=== PATIENT | male | born 1935 | race Caucasian/White ===

== ENCOUNTER 2024-05-01 13:43 | Outpatient (AMB) | payer MEDICARE, SELFPAY ==
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
[2024-05-01 14:04] VITALS: BP 164/75; PULSE 86; O2SAT 97; BMI 29.1
== END 2024-05-01 14:39 | disposition home or self-care (01) ==
PROVIDERS: PCP Family Medicine; Visit Provider Nurse Practitioner Family
DX: M47.817 Spondylosis without myelopathy or radiculopathy, lumbosacral region (principal); M54.50 Low back pain, unspecified; M51.36 Other intervertebral disc degeneration, lumbar region
CPT/HCPCS: 99204

== ENCOUNTER → 2024-05-01 13:43 | Outpatient (BNVA) | payer MEDICARE, SELFPAY | PROVIDERS: PCP Family Medicine; Visit Provider Nurse Practitioner Family | DX: M47.817 Spondylosis without myelopathy or radiculopathy, lumbosacral region (principal); M54.50 Low back pain, unspecified; M51.36 Other intervertebral disc degeneration, lumbar region | CPT/HCPCS: 99202 ==

== ENCOUNTER 2024-06-12 06:16 | Outpatient (REF) | payer MEDICARE, SELFPAY ==
--- NOTE | ~2024-06-12 | FL_ITS ---
EXAMINATION: XR FLUOROSCOPY WITH IMAGES CLINICAL INFORMATION: Intraoperative bilateral L4 and L5 nerve root sleeve injections. COMPARISON: None available. TECHNIQUE: Fluoroscopy provided to: Fluoroscopy time: 0.6 min DAP: 0.153 mGycm2 Images: 12 FINDINGS: Images submitted demonstrate needle placement and contrast injection into the bilateral lumbar L5 and L4 nerve root sleeves. FL/FL guidance in treatment room IMPRESSION: Fluoroscopic guidance. Please refer to the full operative report for details. Electronically signed by: Antonio Pickett MD 08/14/2024 09:15 AM EDT
== END 2024-06-12 06:17 | disposition home or self-care (01) ==
LOC: CF 06:16
PROVIDERS: Visit Provider Anesthesiology
DX: M47.817 Spondylosis without myelopathy or radiculopathy, lumbosacral region (principal); M47.816 Spondylosis without myelopathy or radiculopathy, lumbar region
CPT/HCPCS: 64493; 64494; J2795; Q9967

== ENCOUNTER 2024-06-12 07:11 | Outpatient (AMB) | payer MEDICARE, SELFPAY ==
--- NOTE | 2024-06-12 07:12 | MHC.OFFVIS ---
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 Accompanied by: Self / Same As Patient Allergies acetaminophen Allergy (Unknown, Verified 06/12/24 07:22) Unknown clozapine [From Versacloz] Allergy (Unknown, Verified 06/12/24 07:22) Unknown fentanyl Allergy (Unknown, Verified 06/12/24 07:22) Unknown hydrochlorothiazide Allergy (Unknown, Verified 06/12/24 07:22) Unknown labetalol Allergy (Unknown, Verified 06/12/24 07:22) Unknown levofloxacin [From Levaquin] Allergy (Unknown, Verified 06/12/24 07:22) Unknown lisinopril Allergy (Unknown, Verified 06/12/24 07:22) Unknown valsartan [From Diovan] Allergy (Unknown, Verified 06/12/24 07:22) Unknown PFSH Medical History (Updated 06/12/24 @ 08:04 by Chang Marley MD) Erectile dysfunction Glaucoma Spinal stenosis Hypertension Diabetes mellitus with diabetic neuropathy Chronic back pain Chronic anticoagulation CAD (coronary artery disease) Anemia Surgical History (Updated 05/01/24 @ 14:39 by Peyton Hawley) Hx of transurethral resection of prostate H/O adenoidectomy History of tonsillectomy Social History Alcohol intake: current Alcohol intake frequency: a few times a week Alcohol type: beer Patient Tobacco Use Status: Former Tobacco user Tobacco use type: Cigarette Physical Exam Vital Signs: Last Vital Signs Pulse 82 06/12/24 08:07 Resp 16 06/12/24 08:07 BP 186/71 H 06/12/24 08:07 Pulse Ox 97 06/12/24 08:07 Oxygen Delivery Method Room Air 06/12/24 08:07 BMI result Body Mass Index 29.1 Assessment & Plan Assessment & Plan (1) Spondylosis of lumbar region without myelopathy or radiculopathy: Code(s): M47.816 - Spondylosis without myelopathy or radiculopathy, lumbar region Category: Medical Plan Diagnostic medial branch block L3,L4 dorsal ramus L5 bilateral.? ? ?Informed consent was explained to the patient. All questions were explained and? answered.? The patient was taken inside the operating room where she was positioned prone on the operating table. Time-out was performed delineating correct site, side, the nature of the procedure, patient's allergy, . All operating room staff was participating in OR time-out procedure. ? ? The lower back was prepped with ChloraPrep and draped with sterile towels.? C-arm was brought over the operating field and sq picture of L4-, L5 vertebra and S1 AREA were delineated on the screen.? Point of interest were delineated as confluence of superior articular process of L4 and L5 vertebra bilaterally with corresponding transverse processes as well as confluence of the sacral alae bilaterally with superior articular process of S1.? The projection of the point of interest to the skin were injected with the small amount of local anesthetic lidocaine 2% 1-1.5 cc.? After that 22 gauge 3.5 inch spinal needle was driven sequentially to the points of interest in tunnel vision fashion. After needles gently contacted the bone at the point of interests the needle was injected with small amount of the contrast.? The injection of the contrast did not demonstrate any intravascular or intrathecal spread of the contrast.? After that injection of the? ropivacaine 0.5%-1cc was performed at each needle location.??after that the needles were removed and Bandaids were applied. ? Upon completion of the injections? needle was? removed and sterile Band-Aids were applied.? The patient tolerated procedure very well. Orders: Orders FL guidance in treatment room Today M47.817 - Spondylosis without myelopathy or radiculopathy, lumbosacral region Coding Level of Care Code Procedure Only Diagnoses Spondylosis of lumbar region without myelopathy or radiculopathy M47.816
[2024-06-12 07:20] VITALS: BP 187/87; PULSE 80; RESP 16; O2SAT 98; BMI 29.1
[2024-06-12 08:07] VITALS: BP 186/71; PULSE 82; RESP 16; O2SAT 97
== END 2024-06-12 08:07 | disposition home or self-care (01) ==
LOC: HO.PMCPRC 07:11
PROVIDERS: PCP Family Medicine; Visit Provider Anesthesiology
DX: M47.816 Spondylosis without myelopathy or radiculopathy, lumbar region (principal)

== ENCOUNTER 2024-06-21 15:40 | Outpatient (AMB) | payer MEDICARE, SELFPAY ==
[2024-06-21 15:50] VITALS: BP 169/71; PULSE 84; O2SAT 97; BMI 29.1
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
== END 2024-06-21 16:12 | disposition home or self-care (01) ==
PROVIDERS: PCP Family Medicine; Visit Provider Registered Nurse Emergency
DX: M47.817 Spondylosis without myelopathy or radiculopathy, lumbosacral region (principal); M54.50 Low back pain, unspecified; M51.36 Other intervertebral disc degeneration, lumbar region; M47.816 Spondylosis without myelopathy or radiculopathy, lumbar region
CPT/HCPCS: 99213

== ENCOUNTER → 2024-06-21 15:40 | Outpatient (BNVA) | payer MEDICARE, SELFPAY | PROVIDERS: PCP Family Medicine; Visit Provider Registered Nurse Emergency | DX: M47.816 Spondylosis without myelopathy or radiculopathy, lumbar region (principal); M47.817 Spondylosis without myelopathy or radiculopathy, lumbosacral region; M54.50 Low back pain, unspecified; M51.36 Other intervertebral disc degeneration, lumbar region | CPT/HCPCS: 99212 ==

== ENCOUNTER 2024-08-01 15:43 | Outpatient (AMB) | payer MEDICARE, SELFPAY ==
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
== END 2024-08-01 15:44 | disposition home or self-care (01) ==
LOC: HO.PMC 15:44
PROVIDERS: PCP Family Medicine; Visit Provider Registered Nurse Emergency
DX: M47.817 Spondylosis without myelopathy or radiculopathy, lumbosacral region (principal); M54.50 Low back pain, unspecified; M51.36 Other intervertebral disc degeneration, lumbar region; M47.816 Spondylosis without myelopathy or radiculopathy, lumbar region
CPT/HCPCS: 99442

== ENCOUNTER → 2024-08-01 15:43 | Outpatient (BNVA) | payer MEDICARE, SELFPAY | PROVIDERS: PCP Family Medicine; Visit Provider Registered Nurse Emergency ==

== ENCOUNTER 2024-08-27 15:04 | Outpatient (AMB) | payer MEDICARE, SELFPAY ==
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
[2024-08-27 15:17] VITALS: BP 160/70; PULSE 62; RESP 14; O2SAT 98; BMI 28.7
== END 2024-08-27 15:50 | disposition home or self-care (01) ==
PROVIDERS: PCP Family Medicine; Visit Provider Anesthesiology
DX: M47.817 Spondylosis without myelopathy or radiculopathy, lumbosacral region (principal); M51.360 Other intervertebral disc degeneration, lumbar region with discogenic back pain only; M47.816 Spondylosis without myelopathy or radiculopathy, lumbar region; M54.51 Vertebrogenic low back pain
CPT/HCPCS: 99213

== ENCOUNTER → 2024-08-27 15:04 | Outpatient (BNVA) | payer MEDICARE, SELFPAY | PROVIDERS: PCP Family Medicine; Visit Provider Anesthesiology | DX: M47.817 Spondylosis without myelopathy or radiculopathy, lumbosacral region (principal); M47.816 Spondylosis without myelopathy or radiculopathy, lumbar region; M51.369 Other intervertebral disc degeneration, lumbar region without mention of lumbar back pain or lower extremity pain; M54.51 Vertebrogenic low back pain; E11.40 Type 2 diabetes mellitus with diabetic neuropathy, unspecified; E66.9 Obesity, unspecified; G89.29 Other chronic pain; I48.91 Unspecified atrial fibrillation; Z79.01 Long term (current) use of anticoagulants | CPT/HCPCS: 99212 ==

== ENCOUNTER 2024-10-26 14:57 | Outpatient (AMB) | payer MEDICARE, SELFPAY ==
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
[2024-10-26 15:05] VITALS: BMI 29.1
== END 2024-10-26 15:32 | disposition home or self-care (01) ==
PROVIDERS: PCP Family Medicine; Visit Provider Registered Nurse Emergency
DX: M47.817 Spondylosis without myelopathy or radiculopathy, lumbosacral region (principal); M54.50 Low back pain, unspecified; M51.369 Other intervertebral disc degeneration, lumbar region without mention of lumbar back pain or lower extremity pain; M47.816 Spondylosis without myelopathy or radiculopathy, lumbar region; M54.51 Vertebrogenic low back pain
CPT/HCPCS: 99213; G2211

== ENCOUNTER → 2024-10-26 14:57 | Outpatient (BNVA) | payer MEDICARE, SELFPAY | PROVIDERS: PCP Family Medicine; Visit Provider Registered Nurse Emergency | DX: M47.817 Spondylosis without myelopathy or radiculopathy, lumbosacral region (principal); M51.360 Other intervertebral disc degeneration, lumbar region with discogenic back pain only; M47.816 Spondylosis without myelopathy or radiculopathy, lumbar region | CPT/HCPCS: 99212 ==

== ENCOUNTER 2024-11-09 06:26 | Day surgery (SDC) | payer MEDICARE, SELFPAY ==
[2024-10-26 13:43] VITALS: BP 154/67; PULSE 72; RESP 20; O2SAT 97; BMI 29.1
--- NOTE | 2024-10-26 13:55 | P.CONAN_ITS ---
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 Unable to obtain any previous anesthesia records from other facilities as previous surgeries >10years ago Reviewed with Dr Garcia and Dr Marley, plan etomidate for induction and low dose dilaudid intraop Follows [facility] cardiology for afib and CAD. Stable at 09/2024 office visit with 1 year routine f/u Afib: warfarin DM: FBS ~ 130-155 PMFSH Active Problems Active Problems: All Active Problems Vertebrogenic low back pain (Acute) Spondylosis of lumbar region without myelopathy or radiculopathy (Acute) Lumbar degenerative disc disease (Acute) Low back pain (Acute) Lumbosacral spondylosis (Acute) Past Medical History Medical History Arthritis Renal calculi Afib Erectile dysfunction Glaucoma Spinal stenosis Hypertension Diabetes mellitus with diabetic neuropathy Chronic back pain Chronic anticoagulation CAD (coronary artery disease) Anemia Family History Family history of problems with anesthesia: No Surgical History Surgical History Hx of circumcision Hx of bilateral cataract extraction Hx of hernia repair H/O colonoscopy Hx of cardiac catheterization Hx of transurethral resection of prostate H/O adenoidectomy History of tonsillectomy History of Problems with Anesthesia: No Social History Social History Are you a primary pharmacy customer care specialist to a significant other at home: No Do you presently have visiting nurse or other home services: No Alcohol intake: current Alcohol intake frequency: holidays/special occasions only Alcohol type: beer Patient Tobacco Use Status: Former Tobacco user Tobacco use type: Cigarette Years Smoked: 20 Use of substances other than those prescribed or required for medical reasons: No Have you been hit, kicked, punched, or otherwise hurt by someone within the past year? If so, by whom?: No Spiritual Healthcare Practices: none Church Healthcare Practices: Christianity Cultural Healthcare Practices: none Are you DNR?: No Advance Directives: No Advance Directives Information Provided: Yes (as above noted) Advance Directives on File: No Recently lost weight without trying: No Eating poorly because of decreased appetite: No Nutrition Risks: Surgical patient >75years Poor oral hygiene: No (some missing teeth) Meds Allergies Allergy/AdvReac Type Severity Reaction Status Date / Time metformin Allergy Intermediate Diarrhea Verified 10/26/24 15:06 pioglitazone Allergy Intermediate edema Verified 10/26/24 15:06 propofol Allergy Intermediate PCP note Verified 10/26/24 15:06 states due to HCTZ allergy sitagliptin [From Januvia] Allergy Intermediate Rash Verified 10/26/24 15:06 amlodipine [From Norvasc] Allergy Unknown per PCP Verified 10/26/24 15:06 note clozapine [From Versacloz] Allergy Unknown per PCP Verified 10/26/24 15:06 note fentanyl Allergy Unknown per PCP Verified 10/26/24 15:06 note hydrochlorothiazide Allergy Unknown per PCP Verified 10/26/24 15:06 note labetalol Allergy Unknown per PCP Verified 10/26/24 15:06 note levofloxacin [From Levaquin] Allergy Unknown per PCP Verified 10/26/24 15:06 note lisinopril Allergy Unknown per PCP Verified 10/26/24 15:06 note Thiazides Allergy Unknown per PCP Verified 10/26/24 15:06 note valsartan [From Diovan] Allergy Unknown per PCP Verified 10/26/24 15:06 note Home Medications ?Medication ?Instructions ?Recorded ?Confirmed ?Last Taken ?Type allopurinol 100 mg tablet 100 mg PO BID 05/01/24 10/25/24 11/08/24 History atorvastatin 80 mg tablet 80 mg PO BEDTIME 05/01/24 10/25/24 11/08/24 History furosemide 40 mg tablet 40 mg PO QAM 05/01/24 10/26/24 11/08/24 History gabapentin 100 mg capsule 100 mg PO TID PRN Pain 05/01/24 10/25/24 11/08/24 History ketorolac 0.5 % eye drops 1 drp ophthalmic (eye) QID 05/01/24 10/25/24 11/08/24 History magnesium citrate 100 mg capsule 100 mg PO BEDTIME 05/01/24 10/26/24 11/08/24 History multivitamin 1 tab PO DAILY 05/01/24 10/25/24 11/08/24 History warfarin 5 mg tablet 5 mg PO Q OTHER DAY 05/01/24 10/25/24 11/03/24 History glipizide 5 mg tablet 5 mg PO BID 06/12/24 10/26/24 11/08/24 History isosorbide mononitrate 30 mg 30 mg PO QAM 06/12/24 10/26/24 11/08/24 History tablet,extended release 24 hr irbesartan 75 mg tablet 75 mg PO QAM 10/25/24 10/26/24 11/08/24 History latanoprost 0.005 % eye drops 1 drp ophthalmic (eye) DAILY 10/25/24 10/25/24 11/08/24 History (Xalatan) prednisolone acetate 1 % eye 1 drp ophthalmic (eye) TID 10/25/24 10/25/24 11/08/24 History drops,suspension Exam Height,Weight and Vital Signs: Height 5 ft 10 in Weight 92.079 kg Last Vital Signs Pulse 72 10/26/24 13:43 Resp 20 10/26/24 13:43 BP 154/67 H 10/26/24 13:43 Pulse Ox 97 10/26/24 13:43 O2 Del Method Room Air 10/26/24 13:43 Pertinent Lab Results Pertinent Lab Results: Laboratory Tests 10/26/24 14:43 WBC 7.6 Hgb 11.2 L Hct 34.1 L Plt Count 235 Sodium 142 Potassium 4.5 Chloride 106 Carbon Dioxide 26 BUN 27 H Creatinine 1.27 Narrative Narrative: EKG 09/2024 [id number] Ventricular Rate: 61 BPM Atrial Rate: 53 BPM QRS Duration: 132 ms Q-T Interval: 446 ms QTC Calculation(Bazett): 448 ms R Milano: 78 degrees T Milano: 48 degrees Atrial fibrillation Right bundle branch block Abnormal ECG When compared with ECG of 11-Aug-2023 09:07, No significant change was found Confirmed by ZAKIA HUERTAS ([id number]) on 10/15/2024 6:20:25 PM Airway Mallampati Class: III TM Dist: >3cm Neck ROM: Limited Loose/Missing/Broken Teeth: Yes (Missing molars) Heart: RRR Lungs: CTAB Assessment and Plan Assessment Anesthesia Assessment: Anesthesia Plan Discussed and PAT Visit Final Anesthetic Review Family History of Problems with Anesthesia: No History of Problems with Anesthesia: No Documented by User: Maryanne Garcia MD 11/09/24 08:55 [facility] Past Medical History Medical History Arthritis Renal calculi Afib Erectile dysfunction Glaucoma Spinal stenosis Hypertension Diabetes mellitus with diabetic neuropathy Chronic back pain Chronic anticoagulation CAD (coronary artery disease) Anemia Surgical History Surgical History Hx of circumcision Hx of bilateral cataract extraction Hx of hernia repair H/O colonoscopy Hx of cardiac catheterization Hx of transurethral resection of prostate H/O adenoidectomy History of tonsillectomy Social History Social History Are you a primary pharmacy customer care specialist to a significant other at home: No Do you presently have visiting nurse or other home services: No Alcohol intake: current Alcohol intake frequency: holidays/special occasions only Alcohol type: beer Patient Tobacco Use Status: Former Tobacco user Tobacco use type: Cigarette Years Smoked: 20 Use of substances other than those prescribed or required for medical reasons: No Have you been hit, kicked, punched, or otherwise hurt by someone within the past year? If so, by whom?: No Spiritual Healthcare Practices: none Church Healthcare Practices: Christianity Cultural Healthcare Practices: none Are you DNR?: No Advance Directives: No Advance Directives Information Provided: Yes (as above noted) Advance Directives on File: No Recently lost weight without trying: No Eating poorly because of decreased appetite: No Nutrition Risks: Surgical patient >75years Poor oral hygiene: No (some missing teeth) Meds Allergies Allergy/AdvReac Type Severity Reaction Status Date / Time metformin Allergy Intermediate Diarrhea Verified 10/26/24 15:06 pioglitazone Allergy Intermediate edema Verified 10/26/24 15:06 propofol Allergy Intermediate PCP note Verified 10/26/24 15:06 states due to HCTZ allergy sitagliptin [From Januvia] Allergy Intermediate Rash Verified 10/26/24 15:06 amlodipine [From Norvasc] Allergy Unknown per PCP Verified 10/26/24 15:06 note clozapine [From Versacloz] Allergy Unknown per PCP Verified 10/26/24 15:06 note fentanyl Allergy Unknown per PCP Verified 10/26/24 15:06 note hydrochlorothiazide Allergy Unknown per PCP Verified 10/26/24 15:06 note labetalol Allergy Unknown per PCP Verified 10/26/24 15:06 note levofloxacin [From Levaquin] Allergy Unknown per PCP Verified 10/26/24 15:06 note lisinopril Allergy Unknown per PCP Verified 10/26/24 15:06 note Thiazides Allergy Unknown per PCP Verified 10/26/24 15:06 note valsartan [From Diovan] Allergy Unknown per PCP Verified 10/26/24 15:06 note Home Medications ?Medication ?Instructions ?Recorded ?Confirmed ?Last Taken ?Type allopurinol 100 mg tablet 100 mg PO BID 05/01/24 10/25/24 11/08/24 History atorvastatin 80 mg tablet 80 mg PO BEDTIME 05/01/24 10/25/24 11/08/24 History furosemide 40 mg tablet 40 mg PO QAM 05/01/24 10/26/24 11/08/24 History gabapentin 100 mg capsule 100 mg PO TID PRN Pain 05/01/24 10/25/24 11/08/24 History ketorolac 0.5 % eye drops 1 drp ophthalmic (eye) QID 05/01/24 10/25/24 11/08/24 History magnesium citrate 100 mg capsule 100 mg PO BEDTIME 05/01/24 10/26/24 11/08/24 History multivitamin 1 tab PO DAILY 05/01/24 10/25/24 11/08/24 History warfarin 5 mg tablet 5 mg PO Q OTHER DAY 05/01/24 10/25/24 11/03/24 History glipizide 5 mg tablet 5 mg PO BID 06/12/24 10/26/24 11/08/24 History isosorbide mononitrate 30 mg 30 mg PO QAM 06/12/24 10/26/24 11/08/24 History tablet,extended release 24 hr irbesartan 75 mg tablet 75 mg PO QAM 10/25/24 10/26/24 11/08/24 History latanoprost 0.005 % eye drops 1 drp ophthalmic (eye) DAILY 10/25/24 10/25/24 11/08/24 History (Xalatan) prednisolone acetate 1 % eye 1 drp ophthalmic (eye) TID 10/25/24 10/25/24 11/08/24 History drops,suspension Assessment and Plan Final Anesthetic Review NPO: Yes ASA Class: III Final Preanesthetic Review: No Changes in Pt Med Stat, Meds/Allgs Chart Reviewed, Consent Obtained/Reviewed and Anes Risks/Benef Reviewed Patient Risk: Intermediate Procedure Risk: Intermediate Anesthetic Plan Anesthetic Plan: GA Disposition: Standard PACU
[2024-10-26 14:58] LABS: Hematocrit 34.1 % (42.0-52.0); Hemoglobin 11.2 g/dl (14.0-18.0); Mean Corpuscular HGB Conc 32.8 g/dl (31.0-36.0); Mean Corpuscular Volume 103.6 fL (80.0-98.0); Mean Platelet Volume 9.2 fL (9.4-12.4); Platelet Count 235 X10*3/uL (160-400); Red Blood Count 3.29 X10*6/uL (4.60-5.80); Red Cell Distribution Width 14.1 % (11.0-16.0); White Blood Count 7.6 X10*3/uL (4.8-10.8)
[2024-10-26 15:02] LABS: Estimated Average Glucose 134 mg/dL; Hemoglobin A1C 129.2705 umol/L; Hemoglobin A1c % 6.3 % (<6.0); Total Hemoglobin (HGBA1C) 2825.9567 umol/L
[2024-10-26 15:21] LABS: Anion Gap 15 (12-20); Blood Urea Nitrogen 27 mg/dL (9-16); Calcium 9.4 mg/dL (8.4-10.2); Carbon Dioxide 26 mmol/L (22-29); Chloride 106 mmol/L (96-108); Creatinine Clr Calc Pharmacy 45.8; Estimated Glomerular Filt Rate 54; Glucose Random 66 mg/dL (60-115); Potassium 4.5 mmol/L (3.3-5.1); Sodium 142 mmol/L (135-145)
[2024-11-09] VITALS (15 sets, daily range): BP systolic 127–169; BP diastolic 49–96; PULSE 62–91; RESP 13–20; TEMP 36.1–36.9; O2SAT 95–100; BMI 29.5
[2024-11-09] MEDS: dexAMETHasone sod phosphate 4 MG/ML VIAL IVPUSH (07:30)
[2024-11-09] MEDS: Lactated Ringers 1,000 ML 100 ML IVCONT (07:30)
[2024-11-09 07:44] LABS: INTERNATIONAL NORM RATIO 1.2 (0.9-1.1); Prothrombin Time 13.5 SEC (10.9-12.4)
--- NOTE | 2024-11-09 08:40 | MHC.SHP ---
Pre-Procedural Eval Section A - 24 Hr Update-Section A only Date of Service: 11/09/24 The patient is an INPATIENT: No Changes since office visit: Yes Patient answered all questions The patient has been examined within 24 hours of the surgical procedure. The History & Physical has been completed within 30 days and I have reviewed it.: No Section B - Complete if H&P > 30 days Chief Complaint: Vertebrogenic low back pain Details of Present Illness: as above Relevant Family History (Specify if Yes): No Relevant Social History: None Present Medications: None Medical History: No relevant PMH History of Previous Operations: No relevant previous surgery Allergies: Allergies Allergy/AdvReac Type Severity Reaction Status Date / Time metformin Allergy Intermediate Diarrhea Verified 10/26/24 15:06 pioglitazone Allergy Intermediate edema Verified 10/26/24 15:06 propofol Allergy Intermediate PCP note Verified 10/26/24 15:06 states due to HCTZ allergy sitagliptin [From Januvia] Allergy Intermediate Rash Verified 10/26/24 15:06 amlodipine [From Norvasc] Allergy Unknown per PCP Verified 10/26/24 15:06 note clozapine [From Versacloz] Allergy Unknown per PCP Verified 10/26/24 15:06 note fentanyl Allergy Unknown per PCP Verified 10/26/24 15:06 note hydrochlorothiazide Allergy Unknown per PCP Verified 10/26/24 15:06 note labetalol Allergy Unknown per PCP Verified 10/26/24 15:06 note levofloxacin [From Levaquin] Allergy Unknown per PCP Verified 10/26/24 15:06 note lisinopril Allergy Unknown per PCP Verified 10/26/24 15:06 note Thiazides Allergy Unknown per PCP Verified 10/26/24 15:06 note valsartan [From Diovan] Allergy Unknown per PCP Verified 10/26/24 15:06 note Review of Systems Sugical H&P ROS: Negative: Constitution, Respiratory, Neurological, Psychiatric, Allergic/Immunologic, Gastrointestinal, Genitourinary, Integumentary, Endocrine and Eyes/Ears/Nose/Throat and Yes, Specify: Cardiovascular (CAD s/p NM remote h/o), Hem-Onc (on chronic warfarin) and Musculoskeletal (vertebrogenic pain syndrome, disc degeneration lumbar) Exam Surgical H&P Exam: Normal: HEENT, Normal: Heart, Normal: Lungs, Normal: Extremities, Normal: Abdomen, Normal: Skin and Normal: Neurological Plan Diagnosis/Plan: Unchanged I have reviewed the history and physical and performed a pertinent physical examination on my patient. No changes have occurred unless specified. Time Spent With Patient Time: Total time managing care of this patient today ____ minutes.
[2024-11-09 08:58] LABS: Glucose, Whole Blood 90 mg/dL (60-115)
--- NOTE | 2024-11-09 12:05 | P.BOP_ITS ---
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
--- NOTE | 2024-11-09 12:07 | W.PM.OPN ---
Operative Note Operative Note Date of Service: 11/09/24 Narrative: Radiofrequency ablation of basivertebral nerves of the vertebral bodies of L3, L4, L5, S1. Joseph is very pleasant 89 years old gentleman who came today to the operating room to receive basivertebral nerve radiofrequency ablation L3, L4,L5 and S1. The informed consent was obtained risks and benefits were explained as bleeding , infection, peripheral nerve damage, spinal cord damage, headache, failure to eliminate the pain..? The benefits are pain relief, the alternatives are physical therapy, medications, injections. He received cefazolin 2 g intravenously 30 minutes before onset of the procedure as well as dexamethasone 10 mg intravenously push. The patient came to the operating room and positioned supine on the stretcher. ASA monitors were applied and patient was induced with general endotracheal anesthesia. The patient was transferred on the operating table prone, all pressure points were protected. The entire back was sterilely prepped with ChloraPrep twice and draped with sterile self adhesive utility towels and covered with full body drape. Sterilely draped C-arm was brought over the operating field. Time-out was performed delineating name and date of of the patient, allergies, need for DVT prophylaxis, probiotics prophylaxis, risk of fire. 2 sterilely draped C-arm were adjusted around the operating field, One C-arm positioned in stable lateral position, and another C-armwas rotated to a Daigle view to square off the superior endplate at S1. The skin entry point was identified as 5 cm to the right from the S1 left pedicle and infiltrated with mixture of 2% lidocaine with ropivacaine 0.5% 1 to 1 4 cc. A small horizontal 9 mm skin incision was made with 11 scalpel blade. The introducer cannula with bevel tip was then introduced through the skin, subcutaneous tissue and paraspinal muscle until bony contact was made. The position was checked in the AP and lateral plane. Using a mallet, the trocar was then advanced through the pedicle to the posterior aspect of the vertebral body using a combination of AP , oblique and lateral views to ensure appropriate traversing of the right pedicle and no breaching of the pedicle medially. Once the trocar was in the posterior aspect of the S1 vertebral body, the trocar was removed from the cannula and the curved cannula assembly with the nitinol J-stylet was inserted. The spin wheel was rotated counterclockwise permitting excursion of the J-stylet. The curved cannula assembly was then advanced using a mallet in 1-2 mm increments. The J-stylet was observed to traverse the vertebral body in the midline in both the AP and lateral views. The J-stylet was removed and replaced with the straight stylet to reach the BVN target. Target was reached when the tip of the stylet was noted to be approximately 35 % anterior of the posterior wall of the S1 in the lateral view, 45 % inferior from the superior endplate and it crossed the midline of the S1 spinous process in the AP view. The stylet was then removed. The bipolar radiofrequency (RF) probe was ?inserted into the introducer cannula. The spin wheel was rotated clockwise to retract the PEEK sleeve to expose the proximal electrode on the radiofrequency probe. The BVN was then ablated using [employer]?s standard RFG algorithm for 7 minutes. After the C-arm was moved to visualize the target at the superolateral aspect of the L5 vertebral body. The C-arm was rotated to square off the superior endplate at L5 . The superolateral left L5 pedicle was identified, and the skin entry point identified and infiltrated with mixture of 2% lidocaine with ropivacaine 0.5% one to one using a 25- gauge 1-1/2 inch needle. A skin incision was made with 11 blade scalpel 9 mm. The introducer cannula with bevel tip was then introduced through the skin, subcutaneous tissue and paraspinal muscle until bony contact was made In retropatellar L5 position on the left. The position was checked in the AP and lateral plane. Using a mallet, the trocar was then advanced through the pedicle to the posterior aspect of the vertebral body using a combination of AP, and lateral views to ensure appropriate traversing of the pedicle and no breaching of the pedicle medially or inferiorly. Once the trocar was in the posterior aspect of the L5 vertebral body the trocar was removed from the cannula and the curved cannula assembly with the nitinol J-stylet was inserted. The spin wheel was rotated counterclockwise permitting excursion of the J-stylet. The curved cannula assembly was then advanced using a mallet in 1-2 mm increments. The J-stylet was observed to traverse the vertebral body in the AP and lateral views. Target was reached when the tip of the stylet was 40 % anterior of the posterior wall of the L5 in the lateral view (midway between the superior and inferior endplates) and it crossed the midline of the L5 spinous process in the AP view. The stylet was then removed. The bipolar radiofrequency (RF) probe was removed from the previous vertebral body, the tip cleaned and was inserted into the introducer cannula in its ablation position. The spin wheel was rotated clockwise to retract the PEEK sleeve to expose the proximal electrode on the radiofrequency probe. The BVN was then ablated using [employer]?s standard RFG algorithm for 7 minutes.? After the C-arm was moved to visualize the target at the superolateral aspect of the L4 vertebral body. The C-arm was rotated to square off the superior endplate at L4 . The superolateral right L4 pedicle was identified, and the skin entry point identified and infiltrated with mixture of 2% lidocaine with ropivacaine 0.5% one to one using a 25- gauge 1-1/2 inch needle. A skin incision was made with 11 blade scalpel 9 mm. The introducer cannula with bevel tip was then introduced through the skin, subcutaneous tissue and paraspinal muscle until bony contact was made In retropatellar L4 position on the right. The position was checked in the AP and lateral plane. Using a mallet, the trocar was then advanced through the pedicle to the posterior aspect of the vertebral body using a combination of AP, and lateral views to ensure appropriate traversing of the pedicle and no breaching of the pedicle medially or inferiorly. Once the trocar was in the posterior aspect of the L5 vertebral body the trocar was removed from the cannula and the curved cannula assembly with the nitinol J-stylet was inserted. The spin wheel was rotated counterclockwise permitting excursion of the J-stylet. The curved cannula assembly was then advanced using a mallet in 1-2 mm increments. The J-stylet was observed to traverse the vertebral body in the AP and lateral views. Target was reached when the tip of the stylet was 40 % anterior of the posterior wall of the L4 in the lateral view (midway between the superior and inferior endplates) and it crossed the midline of the L4 spinous process in the AP view. The stylet was then removed. The bipolar radiofrequency (RF) probe was removed from the previous vertebral body, the tip cleaned and was inserted into the introducer cannula in its ablation position. The spin wheel was rotated clockwise to retract the PEEK sleeve to expose the proximal electrode on the radiofrequency probe. The BVN was then ablated using [employer]?s standard RFG algorithm for 15 minutes.? After the C-arm was moved to visualize the target at the superolateral aspect of the L3 vertebral body. The C-arm was rotated to square off the superior endplate at L 3 . The superolateral left L3 pedicle was identified, and the skin entry point identified and infiltrated with mixture of 2% lidocaine with ropivacaine 0.5% one to one using a 25- gauge 1-1/2 inch needle. A skin incision was made with 11 blade scalpel 9 mm. The introducer cannula with bevel tip was then introduced through the skin, subcutaneous tissue and paraspinal muscle until bony contact was made In retropatellar L3 position on the right. The position was checked in the AP and lateral plane. Using a mallet, the trocar was then advanced through the pedicle to the posterior aspect of the vertebral body using a combination of AP, and lateral views to ensure appropriate traversing of the pedicle and no breaching of the pedicle medially or inferiorly. Unlike the previous pedicles of L4, L5, and S1 the L3 pedicle appeared to be very soft and easily to be penetrated. The trocar went into vertebral body and the vertebral body there also was very soft to the point where I could not avoid advancing the trocar while hammering the Nitinol probe in. Once the trocar was in the posterior aspect of the L5 vertebral body the trocar was removed from the cannula and the curved cannula assembly with the nitinol J-stylet was inserted. The spin wheel was rotated counterclockwise permitting excursion of the J-stylet. The curved cannula assembly was then advanced using a mallet in 1-2 mm increments. The J-stylet was observed to approach close to the center of the the vertebral body in the AP and lateral views. Target was reached when the tip of the stylet was 50 % anterior of the posterior wall of the L4 in the lateral view (midway between the superior and inferior endplates) and it crossed the midline of the L4 spinous process in the AP view. The stylet was then removed. The bipolar radiofrequency (RF) probe was removed from the previous vertebral body, the tip cleaned and was inserted into the introducer cannula in its ablation position. The spin wheel was rotated clockwise to retract the PEEK sleeve to expose the proximal electrode on the radiofrequency probe. The BVN was then ablated using [employer]?s standard RFG algorithm for 15 minutes.? Upon completion of the procedure instruments were removed EN mass. Pressure was applied to each site of the insertion of the introducer and held for 90 seconds. After that single skin sutures was performed to close the wound with 0-0 silk suture. Bacitracin ointment was applied and sterile dressing was applied. The patient was awaken, extubated, taken outside of the operating room to recovery room where she recovered uneventfully
== END 2024-11-09 15:42 | disposition home or self-care (01) ==
PROVIDERS: Nurse Practitioner; Visit Provider Anesthesiology
PROC: (CPT 64628; principal; 2024-11-09 09:00)
DX: M54.51 Vertebrogenic low back pain (principal); G89.4 Chronic pain syndrome; M48.061 Spinal stenosis, lumbar region without neurogenic claudication; M47.817 Spondylosis without myelopathy or radiculopathy, lumbosacral region; M51.369 Other intervertebral disc degeneration, lumbar region without mention of lumbar back pain or lower extremity pain; I48.91 Unspecified atrial fibrillation; I10 Essential (primary) hypertension; I25.2 Old myocardial infarction; E11.40 Type 2 diabetes mellitus with diabetic neuropathy, unspecified; E11.319 Type 2 diabetes mellitus with unspecified diabetic retinopathy without macular edema; Z79.01 Long term (current) use of anticoagulants; Z79.84 Long term (current) use of oral hypoglycemic drugs; Z88.1 Allergy status to other antibiotic agents; Z88.5 Allergy status to narcotic agent; Z88.8 Allergy status to other drugs, medicaments and biological substances; D64.9 Anemia, unspecified; Z98.890 Other specified postprocedural states; Z87.891 Personal history of nicotine dependence
CPT/HCPCS: 64628; 64629 ×2; 36415; 80048; 82947; 83036; 85027; 85610; C1889; J0131; J0690; J1100; J1171; J1805; J2003; J2795

== ENCOUNTER → 2024-11-09 06:26 | Outpatient (BNV) | payer MEDICARE, SELFPAY | PROVIDERS: Visit Provider Anesthesiology | DX: M54.51 Vertebrogenic low back pain (principal); G89.4 Chronic pain syndrome | CPT/HCPCS: 64628; 64629 ==

== ENCOUNTER 2024-11-16 14:05 | Outpatient (AMB) | payer MEDICARE, SELFPAY ==
[2024-11-16 14:24] VITALS: BP 176/76; PULSE 70; RESP 15; O2SAT 100; BMI 29.4
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
== END 2024-11-16 15:02 | disposition home or self-care (01) ==
PROVIDERS: PCP Family Medicine; Visit Provider Registered Nurse Emergency
DX: M47.817 Spondylosis without myelopathy or radiculopathy, lumbosacral region (principal); M54.50 Low back pain, unspecified; M51.369 Other intervertebral disc degeneration, lumbar region without mention of lumbar back pain or lower extremity pain; M47.816 Spondylosis without myelopathy or radiculopathy, lumbar region; M54.51 Vertebrogenic low back pain
CPT/HCPCS: 99213; G2211

== ENCOUNTER → 2024-11-16 14:05 | Outpatient (BNVA) | payer MEDICARE, SELFPAY | PROVIDERS: PCP Family Medicine; Visit Provider Registered Nurse Emergency | DX: M47.817 Spondylosis without myelopathy or radiculopathy, lumbosacral region (principal); M51.360 Other intervertebral disc degeneration, lumbar region with discogenic back pain only; M47.816 Spondylosis without myelopathy or radiculopathy, lumbar region | CPT/HCPCS: 99212 ==

== ENCOUNTER 2024-11-26 15:31 | Outpatient (AMB) | payer MEDICARE, SELFPAY ==
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
[2024-11-26 15:32] VITALS: BMI 29.4
== END 2024-11-26 15:48 | disposition home or self-care (01) ==
LOC: HO.PMC 15:31
PROVIDERS: PCP Family Medicine; Visit Provider Anesthesiology
DX: M47.817 Spondylosis without myelopathy or radiculopathy, lumbosacral region (principal); M54.50 Low back pain, unspecified; M51.369 Other intervertebral disc degeneration, lumbar region without mention of lumbar back pain or lower extremity pain; M47.816 Spondylosis without myelopathy or radiculopathy, lumbar region; M54.51 Vertebrogenic low back pain
CPT/HCPCS: 99213

== ENCOUNTER → 2024-11-26 15:31 | Outpatient (BNVA) | payer MEDICARE, SELFPAY | PROVIDERS: PCP Family Medicine; Visit Provider Anesthesiology ==

== ENCOUNTER 2025-02-20 13:24 | Outpatient (AMB) | payer MEDICARE, SELFPAY ==
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
[2025-02-20 13:41] VITALS: BP 190/77; PULSE 74; RESP 16; O2SAT 99; BMI 29.5
--- OUTSIDE RECORDS SUMMARY | 2025-02-20 16:03 | XMS_ITS | Clinical Summary ---
Author Organization [facility] Address [address] [place] [address] Care Team Providers Care Cloud Physicist Name Role Phone Jesus Noonan MD Primary Care Provider [phone] Allergies Active Allergy Reactions Criticality Noted Date Comments Acetaminophen 03/14/2018 Fentanyl 03/14/2018 Hydrochlorothiazide 03/14/2018 Labetalol 03/14/2018 Levofloxacin 03/14/2018 Lisinopril 03/14/2018 Propofol 03/14/2018 Medications Medication Sig Dispensed Refills Start Date End Date Status allopurinol (ZYLOPRIM) 100 MG tablet 0 01/30/2018 Active calcipotriene (DOVONOX) 0.005 % cream 0 01/18/2018 Active furosemide (LASIX) 40 MG tablet 0 01/30/2018 Active gabapentin (NEURONTIN) 100 MG capsule 0 12/16/2017 Active glimepiride (AMARYL) tablet 1 mg 0 03/10/2018 Active isosorbide mononitrate (IMDUR) 30 MG 24 hr tablet 0 01/30/2018 Active latanoprost (XALATAN) 0.005 % ophthalmic solution 0 12/26/2017 Active losartan (COZAAR) 100 MG tablet 0 01/30/2018 Active nadolol (CORGARD) 20 MG tablet 0 02/10/2018 Active prednisoLONE acetate (PRED FORTE) 1 % ophthalmic suspension 0 02/23/2018 Act kaleb warfarin (COUMADIN) 5 MG tablet 0 01/20/2018 Active terazosin (HYTRIN) 10 MG capsule Take 10 mg by mouth every night at bedtime. 0 Active Active Problems Problem Noted Date Diagnosed Date Hematuria, gross 03/14/2018 Enlarged prostate with urinary obstruction 03/14 Kidney stone 03/14/2018 Family History Medical History Relation Name Comments Bone cancer Brother Heart attack Brother Heart attack Son Relation Name Status Comments Brother Son Social History Tobacco Use Types Packs/Day Years Used Date Smoking Tobacco: Former Smokeless Tobacco: Never Alcohol Use Standard Drinks/Week Comments Yes 0 (1 standard drink = 0.6 oz pur e alcohol) Sex and Gender Information Value Date Recorded Sex Assigned at Not on file Gender Identity Not on file Sexual Orientation Not on file Last Filed Vital Signs Vital Sign Reading Time Taken Comments Blood Pressure 138/62 03/14/2018 12:41 PM EDT Pulse - - Temperature - - Respiratory Rate - - Oxygen Saturation - - Inhaled Oxygen Concentration - - Weight 98.9 kg (218 lb) 03/14/2018 12:41 PM EDT Height 177.8 cm (5' 10 ) 03/14/2018 12:41 PM EDT Body Mass Index 31.28 03/14/2018 12:41 PM EDT Plan of Treatment Health Maintenance Due Date Last Done Comments COVID-19 Vaccine (#1) 01/18/1936 Depression Screening 1948 Preventative Health Evaluation 1954 DTap / Tdap / Td (1 - Tdap) 1955 Shingrix-Zoster Vaccine (1 of 2) 1986 Fall Risk Assessment 2001 Pneumococcal Vaccine (1 of 1 - PCV) 2001 RSV Adult > 60+ Yrs or Pregn ant (1 - 1-dose 75+ series) 2011 Influenza Vaccine (#1) 2024 Hepatitis B Vaccines Aged Out No long er eligible based on patient's age to complete this topic RSV Ped < 20 months Aged Out No longe r eligible based on patient's age to complete this topic Care Teams Cloud Physicist Relationship Specialty Start Date End Date [facility] [place] [id number] PCP - General Internal Medicine 03/14/18
== END 2025-02-20 14:19 | disposition home or self-care (01) ==
LOC: HO.PMC 13:25
PROVIDERS: PCP Family Medicine; Visit Provider Anesthesiology
DX: M47.817 Spondylosis without myelopathy or radiculopathy, lumbosacral region (principal); M54.50 Low back pain, unspecified; M51.369 Other intervertebral disc degeneration, lumbar region without mention of lumbar back pain or lower extremity pain; M47.816 Spondylosis without myelopathy or radiculopathy, lumbar region; M54.51 Vertebrogenic low back pain
CPT/HCPCS: 99213

== ENCOUNTER → 2025-02-20 13:24 | Outpatient (BNVA) | payer MEDICARE, SELFPAY | PROVIDERS: PCP Family Medicine; Visit Provider Anesthesiology | DX: M47.817 Spondylosis without myelopathy or radiculopathy, lumbosacral region (principal); M47.816 Spondylosis without myelopathy or radiculopathy, lumbar region; M51.360 Other intervertebral disc degeneration, lumbar region with discogenic back pain only; M54.51 Vertebrogenic low back pain | CPT/HCPCS: 99212 ==